=== PATIENT | female | born 2000 | race Two or more races ===

== ENCOUNTER 2019-03-13 10:27 | Emergency (ER) | payer OTHER ==
[~2019-03-13] VITALS: Ht 162.6 cm; Wt 85.9 kg
[2019-03-13 10:46] VITALS: BP 145/104
--- NOTE | 2019-03-13 11:43 | NUR ---
back in room after ct. SAIDA. Donta&Ox4 gcs 15. can move neck. awaiting results. as
[2019-03-13] MEDS ORDERED: ACETAMINOPHEN 325 MG TABLET PO ONE (12:00)
[2019-03-13] MEDS ORDERED: ACETAMINOPHEN 325 MG TABLET ONE (12:06)
== END 2019-03-13 13:08 | disposition home or self-care (01) ==
LOC: ED 13:00
DX: S50.11XA Contusion of right forearm, initial encounter (principal); R51 Headache; Z87.891 Personal history of nicotine dependence; V49.09XA Driver injured in collision with other motor vehicles in nontraffic accident, initial encounter; Y93.89 Activity, other specified; Y92.89 Other specified places as the place of occurrence of the external cause; Y99.8 Other external cause status
CPT/HCPCS: 70450; 72072; 72110; 99284